=== PATIENT | female | born 1955 | race Caucasian/White ===

== ENCOUNTER 2018-10-11 20:17 | Emergency (ER) | payer OTHER ==
[~2018-10-11] VITALS: Ht 170.2 cm; Wt 81.6 kg
[~2018-10-11 20:17] MED LIST: ALTACE5 MG PO; BACTROBAN22 GM TP; CIPRO500 MG PO; DECADRON P4 MG/ML-1M IH; DEPO-MEDROL40 MG/ML IM; FLONASE16 GM NS; GABAPENTIN800 MG PO; GILTUSS TR TAB1 EACH PO; INTESTINEX1 CAP PO; METFORMIN HCL750 MG PO; NEURONTIN600 MG; PHENERGAN25 MG PO; PLAVIX75 MG PO; SEPTRA DS TABLE1 TAB PO; SIMVASTATIN40 MG; SYNTHROID100 MCG PO; TENCON TABLET1 TAB PO; TESSALON PERLE100 MG PO; TOPROL XL25 M1; TRAM1TAB98 PO; TRAYENTA PO; ULTRACET PO
[2018-10-12] MEDS ORDERED: SKELAXIN800 MG PO (01:23)
[2018-10-12] MEDS ORDERED: MEDROLPACK PO (01:23)
== END 2018-10-12 01:45 | disposition home or self-care (01) ==
LOC: ER 20:17
DX: M25.552 Pain in left hip (principal)

== ENCOUNTER 2019-11-13 06:47 | Day surgery (SDC) | payer OTHER ==
[~2019-11-13 06:47] MED LIST changes: +ALENDRONATE SOD70 MG PO; +MEDROLPACK PO; +MULTIPLE VITAM1 EACH PO; +PROAIR HFA8.5 GM IH; +SKELAXIN800 MG PO
[2019-11-13] MEDS ORDERED: ULTRACET PO (08:51)
== END 2019-11-13 11:40 | disposition home or self-care (01) ==
LOC: CIR.AMB 06:47 → ADM 09:45 → CIR.AMB 11:40
DX: R15.9 Full incontinence of feces (principal); K64.8 Other hemorrhoids
CPT/HCPCS: 64590; C1767

== ENCOUNTER 2022-12-05 07:12 | Outpatient (CLI) | payer OTHER | END 2022-12-05 07:14 | disposition home or self-care (01) | LOC: NUCLEAR 07:12 | PROVIDERS: ATTEND Internal Medicine | DX: I20.8 Other forms of angina pectoris (principal); R06.00 Dyspnea, unspecified ==

== ENCOUNTER 2025-05-05 08:38 | Outpatient (CLI) | payer OTHER | END 2025-05-05 08:39 | disposition home or self-care (01) | LOC: NUCLEAR 08:38 | PROVIDERS: ATTEND Psychiatry & Neurology Clinical Neurophysiology | DX: G31.84 Mild cognitive impairment of uncertain or unknown etiology (principal) | CPT/HCPCS: 78803; A9557 ==